=== PATIENT | female | born 1970 ===

== ENCOUNTER 2022-02-10 06:20 | Day surgery (SDC) | payer OTHER ==
[~2022-02-10] VITALS: Ht 160 cm; Wt 89.4 kg
[~2022-02-10 06:20] MED LIST: SYNTHROID100 MCG PO; VASOTEC20 M1 PO
== END 2022-02-10 11:30 | disposition home or self-care (01) ==
LOC: O/R 06:20 → CIR.AMB 06:20
PROVIDERS: ATTEND Obstetrics & Gynecology
DX: N84.1 Polyp of cervix uteri (principal); Z20.822 Contact with and (suspected) exposure to COVID-19